=== PATIENT | female | born 1945 | race Caucasian/White ===

== ENCOUNTER 2022-01-15 21:29 | Emergency (ER) | payer OTHER ==
[~2022-01-15 21:29] MED LIST: AMLO-489 PO; CLOP75TA70 PO; FAMO-12 PO; GLIP5TAB12 PO; LEVO500T31 PO; LISI20TA28 PO; METR500T PO; OMEP20TA PO; ONDA-144 PO; OXYB5TAB61 PO; PANT40T PO; SIMV-8 PO; TRAZ50TA2 PO
[2022-01-15] MEDS ORDERED: ONDANSETRON HCL 4 MG/2 ML VIAL IV ONE (21:45)
[2022-01-15] MEDS ORDERED: HYDROmorphone HCL 2 MG/ML VL/or syr IV ONE (21:45)
[2022-01-15] MEDS ORDERED: SODIUM CHLORIDE 0.9% 500 ML IV ONE (21:45)
[2022-01-15 22:41] LABS: Mean Corpuscular Hgb Conc. 31.7 g/dL (32.0-36.0); Monocytes # (auto) 0.4 10 ^3/uL (0-1.3)
[2022-01-15 22:43] LABS: Basophils # (auto) 0 10 ^3/uL (0-0.2); Basophils % (auto) 0.3 % (0.0-2.0); Eosinophils # (auto) 0 10 ^3/uL (0-0.8); Eosinophils % (auto) 0.3 % (0.0-7.0); Hematocrit 39.9 % (36.0-46.0); Hemoglobin 12.6 g/dL (12.2-16.2); Lymphocytes # (auto) 1.5 10 ^3/uL (0.4-5.4); Lymphocytes % (auto) 14.8 % (10.0-50.0); Monocytes % (auto) 3.8 % (0.0-12.0); Neutrophils # (auto) 8.2 10 ^3/uL (1.6-8.6); Neutrophils % (auto) 80.8 % (37.0-80.0); Red Blood Cells 4.86 10^6/uL (4.0-5.20); Red Cell Distribution Width 14.1 % (11.8-14.3); White Blood Cell 10.2 10^3/uL (4.4-10.8)
[2022-01-15 22:56] LABS: Albumin 3.4 g/dL (3.4-5.0); Calcium 9.1 mg/dL (8.5-10.1); Potassium 3.8 mmol/L (3.5-5.1)
[2022-01-15 22:59] LABS: BUN/Creatinine Ratio 19.1
[2022-01-15 23:02] LABS: Bilirubin, Total 0.2 mg/dL (0.2-1.0); Total Protein 6.7 g/dL (6.4-8.2)
[2022-01-16 02:00] VITALS: BP 144/71
[2022-01-16] MEDS ORDERED: OXYCODONE W/ ACETAMINOPHEN 5/325MG TABLET PO ONE (02:30)
[2022-01-16] MEDS ORDERED: PERCOT PO (02:32)
== END 2022-01-16 02:45 | disposition home or self-care (01) ==
LOC: EDBD 21:29 → ER 21:29
DX: M25.551 Pain in right hip (principal); R55 Syncope and collapse; R07.9 Chest pain, unspecified; E11.9 Type 2 diabetes mellitus without complications; Z88.6 Allergy status to analgesic agent; W01.0XXA Fall on same level from slipping, tripping and stumbling without subsequent striking against object, initial encounter; Y93.89 Activity, other specified; Y92.89 Other specified places as the place of occurrence of the external cause; Y99.8 Other external cause status
CPT/HCPCS: 36415; 71045; 73502; 74176; 80053; 84484; 85025; 93005; 96374; 96375; 99285; J1170; J2405; J7040

== ENCOUNTER 2022-02-27 23:09 | Emergency (ER) | payer OTHER ==
[~2022-02-27] VITALS: Ht 165.1 cm; Wt 92.0 kg
[~2022-02-27 23:09] MED LIST changes: -CLOP75TA70 PO; +ENO40SY SC; -GLIP5TAB12 PO; -LEVO500T31 PO; -LISI20TA28 PO; -PANT40T PO; +PERCOT PO
[2022-02-27] MEDS ORDERED: EPINEPHrine HCL 1 MG/10 ML SYRG IV ONE (23:10)
[2022-02-27] MEDS ORDERED: SODIUM BICARBONATE 8.4% INJ 50ML SYRINGE IV ONE (23:10)
== END 2022-02-27 23:18 ==
LOC: EDBD 23:09 → ER 23:09
DX: I46.9 Cardiac arrest, cause unspecified (principal); I21.3 ST elevation (STEMI) myocardial infarction of unspecified site; R06.89 Other abnormalities of breathing; E11.9 Type 2 diabetes mellitus without complications; I10 Essential (primary) hypertension
CPT/HCPCS: 31500; 92950; 99291; J0171